=== PATIENT | female | born 1990 | race Caucasian/White ===

== ENCOUNTER 2023-11-01 19:22 | Inpatient (IN) | payer MEDICAID, SELFPAY ==
[2023-11-01] VITALS (19 sets, daily range): BP systolic 101–131; BP diastolic 57–94; PULSE 50–78; RESP 16–25; TEMP 36–37.3; O2SAT 93–100; BMI 31.5; BMI 34.4
--- NOTE | 2023-11-01 19:31 | CT_ITS ---
INDICATION: Altered mental status question history of trauma EXAMINATION: CT BRAIN - CT Head or Brain W/O Contrast Injection TECHNIQUE: Multiple axial images were obtained of the head without intravenous contrast. A radiation dose optimization technique was used for this scan. IV Contrast dosage and agent: None. COMPARISON: None. FINDINGS: BRAIN PARENCHYMA: No intra- or extra-axial hemorrhage. No evidence of acute infarct. No intracranial mass or mass effect. There is preservation of the warren/white matter interface. Posterior fossa structures are unremarkable. CSF SPACES: Appropriate for age. No hydrocephalus. Basal cisterns are patent. CALVARIUM, SKULL BASE, PARANASAL SINUSES AND MASTOID AIR CELLS: Clear. No discrete lytic or blastic abnormalities. ORBITS: Both globes, extraocular muscles, optic nerves and retrobulbar fat appear unremarkable. CT/Brain/Head without Contrast IMPRESSION: No acute intracranial findings. Electronically Signed: Rony Nunes MD at 22:12 EDT ,
--- NOTE | 2023-11-01 19:32 | EKG12_ITS ---
Test Reason : SOB Blood Pressure : / mmHG Vent. Rate : 055 BPM Atrial Rate : 055 BPM P-R Int : 132 ms QRS Dur : 084 ms QT Int : 426 ms P-R-T Axes : 035 017 049 degrees QTc Int : 407 ms Sinus bradycardia Otherwise normal ECG Confirmed by ESTEFANY COLES, ARPITA ([id number]), managing editor BISMARK MANNING ([id number]) on 11/03/2023 1:39:37 PM Referred By: FELICITA Confirmed By:ARPITA ALLISON MD
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
[2023-11-01 20:01] LABS: Absolute Lymphocyte Count 3.26 X10^3/uL (0.83-4.51); Absolute Neutrophil Count 5.8 X10^3/uL (2.0-7.7); Basophil# 0.03 X10^3/uL; Basophil% 0.3 % (0-1); Eosinophil# 0.09 X10^3/uL; Eosinophils% 0.9 % (0-5); Hematocrit 47.7 % (37-47); Hemoglobin 16.1 g/dL (12.0-15.0); Lymphocyte # 3.26 X10^3/ul (0.83-4.51); Lymphocyte % 33.7 % (19-41); Mean Corp Hgb Conc 33.8 g/dL (32-36); Mean Corpuscular Hgb 32.3 pg (27.0-32.0); Mean Corpuscular Volume 95.8 fL (81-99); Monocyte# 0.47 X10^3/uL; Monocyte% 4.9 % (0-10); NRBC Flagged by Analyzer 0 % (0-5); Neutrophil # 5.78 X10^3/uL (2.7-7.7); Neutrophil % 59.8 % (47-70); Platelet Count 370 K/mm3 (150-450); RBC Distribution Width SD 41.9 fl (35.1-43.9); Red Blood Count 4.98 M/mm3 (4.2-5.4); White Blood Count 9.7 K/mm3 (4.4-11.0)
[2023-11-01 20:01] LABS: Bedside Glucose 117 mg/dL (74-106)
[2023-11-01 20:10] LABS: Partial Thromboplast Time 27.3 Seconds (24.1-36.2); Prothrombin Time (Protime)PT. 12.7 SECONDS (11.7-14.9)
[2023-11-01 20:12] LABS: Bacteria 0 SEEN /hpf (None Seen); Mucous, Urine 0 SEEN /hpf (<or=2+); White Blood Cells 0 SEEN /hpf (0-5)
[2023-11-01] MEDS: 0.9% Normal Saline (1000mL) 1,000 ML 150 ML IV ×2 (20:18→23:19)
[2023-11-01 20:22] LABS: ALB/GLOB Ratio 0.9 RATIO (0.9-2.4); AST(SGOT) 23 U/L (15-37); Alanine Aminotransfer ALT/SGPT 23 U/L (13-56); Alkaline Phosphatase 87 U/L (45-117); Anion Gap 11 (5-15); BUN 12 mg/dL (7-18); BUN/Creat Ratio 13.6 RATIO (10-20); Calcium,Total 9.2 mg/dL (8.5-10.1); Chloride 108 mmol/L (98-107); Creatinine, Serum 0.88 mg/dL (0.55-1.02); EST Glomerular Filtration Rate 80 mL/min (>60); Est Glom Filt Rate - Afr Amer 96 mL/min (>60); Estimated Creatinine Clearance 103.85 ml/min; Globulin 4.4 g/dL (2.2-4.2); Glucose 96 mg/dL (74-106); Lipase 54 U/L (13-75); Potassium 3.7 mmol/L (3.5-5.1); Protein, Total 8.4 g/dL (6.4-8.2); Sodium Level 142 mmol/L (136-145); Troponin-I HS 3 pg/mL (3.0-54.0)
[2023-11-01 20:22] LABS: Allen Test Positive; Base Excess -4 mmol/L (-2 to +2); Bicarbonate 21.5 mmol/L (22-26); Blood Gas Specimen Type ART; Mode Not entered; O2 Delivery Device Cannula; PO2 124 mmHG (75-100); SITE R Radial; SO2 99 % (95-99); Total Carbon Dioxide 23 mmol/L; pCO2 38.8 mmHg (35-45); pH 7.35 (7.35-7.45)
[2023-11-01 20:23] LABS: Lactic Acid 2.2 mmol/L (0.4-1.9)
--- NOTE | 2023-11-01 20:23 | ED.RN ---
dr alex notified of lactic of 2.2
[2023-11-01] MEDS: Ketamine HCl 500 MG/5 ML Vial 30 MG IV (20:51)
[2023-11-01 20:52] LABS: Amphetamine Urine NEGATIVE (<1000 ng/mL); Barbiturate Urine NEGATIVE (< 200 ng/mL); Benzodiazepine Urine NEGATIVE (< 200 ng/mL); Cocaine Urine NEGATIVE (< 300 ng/mL); Ecstacy Urine NEGATIVE (< 500 ng/mL); Methadone Urine NEGATIVE (< 300 ng/mL); Opiates Urine NEGATIVE (< 300 ng/mL); PCP Urine NEGATIVE (< 25 ng/mL); THC Urine POSITIVE (< 50 ng/mL); Vista UDS pH Range 6
--- NOTE | 2023-11-01 21:07 | RAD_ITS ---
INDICATION: Rhonchi bilaterally with hypoxia question aspirati EXAMINATION/TECHNIQUE: X-RAY - XR Chest 1 View COMPARISON: None. FINDINGS: LINES/DEVICES: None. LUNGS: No consolidation, edema or effusion. No pneumothorax. MEDIASTINUM AND CARDIOVASCULAR STRUCTURES: Cardiac silhouette not enlarged. BONES AND SOFT TISSUES: Unremarkable. RAD/Chest 1 View (Portable) IMPRESSION: No radiographic evidence of acute cardiopulmonary disease. Electronically Signed: Oleg Newton MD at 22:22 EDT ,
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
--- NOTE | 2023-11-01 21:22 | NURSING ---
Pt more alert at this time. Yelling, flailing, spitting. Pulled up in bed.
--- NOTE | 2023-11-01 21:31 | NURSING ---
Report called to ICU and given to Vashti LOYA.
[2023-11-01] MEDS: 0.9% Normal Saline (1000mL) 1,000 ML 999 ML IV (22:19)
[2023-11-01] MEDS: proCHLORPERazine 10 MG/2 ML Vial 5 MG IV (22:19)
[2023-11-01] MEDS: Pantoprazole Sodium 40 MG in 0.9% Normal Saline (100mL MB+) 100 ML 330 MG IV (22:21)
[2023-11-01 22:34] LABS: Procalcitonin < 0.04 ng/mL (0.00-0.09)
[2023-11-01 22:47] LABS: Color, Urine Yellow (Yellow); Glucose, Dipstick Normal (Normal); Ketone-Dipstick Negative (Negative); Leukocyte Esterase-Dipstick Negative /ul (Negative); Nitrite-Dipstick Negative (Negative); Occult Blood-Urine 150 /ul (Negative); Protein-Dipstick Negative (Negative); Urine Bilirubin Dipstick Negative (Negative); Urine Clarity Clear (Clear); Urine Urobilinogen Normal (Normal); Urine pH 6.5 (5.0 - 8.0)
[2023-11-01 22:53] LABS: Red Blood Cells-Urine 10-25 SEEN /hpf (0-5); Squamous Epithelial Cells - UA 5-10 SEEN /hpf (5-10)
[2023-11-01 23:08] LABS: Magnesium 2.1 mg/dL (1.6-2.6); Phosphorus 3.1 mg/dL (2.5-4.9)
[2023-11-01 23:50] LABS: Reflex Lactate? Y
[2023-11-02] VITALS (14 sets, daily range): BP systolic 101–114; BP diastolic 57–69; PULSE 47–66; RESP 13–22; TEMP 36.2–37.3; O2SAT 92–100; BMI 34.4
[2023-11-02] MEDS: 0.9% Normal Saline (1000mL) 1,000 ML 150 ML IV (05:45)
--- NOTE | 2023-11-02 05:55 | RAD_ITS ---
INDICATION: Dyspnea, cough EXAMINATION/TECHNIQUE: X-RAY - XR Chest 1 View COMPARISON: 11/01/2023 chest radiograph. Findings: Single frontal view of the chest. LUNG PARENCHYMA: Streaky right lateral lung base atelectasis versus other airspace disease. PLEURA: No pleural effusion. No pneumothorax. HEART/GREAT VESSELS: Cardiomediastinal silhouette is unremarkable. BONES: Osseous structures are unremarkable for age. RAD/Chest 1 View (Portable) IMPRESSION: Streaky right lateral lung base atelectasis versus other airspace disease, to include pneumonia.. Electronically Signed: Fabio Wild MD at 7:03 EDT ,
[2023-11-02 06:27] LABS: Absolute Lymphocyte Count 3.06 X10^3/uL (0.83-4.51); Absolute Neutrophil Count 5.3 X10^3/uL (2.0-7.7); Basophil# 0.02 X10^3/uL; Basophil% 0.2 % (0-1); Eosinophil# 0.06 X10^3/uL; Eosinophils% 0.7 % (0-5); Hematocrit 41.9 % (37-47); Hemoglobin 13.8 g/dL (12.0-15.0); Lymphocyte # 3.06 X10^3/ul (0.83-4.51); Lymphocyte % 33.9 % (19-41); Mean Corp Hgb Conc 32.9 g/dL (32-36); Mean Corpuscular Hgb 31.9 pg (27.0-32.0); Mean Corpuscular Volume 96.8 fL (81-99); Mean Platelet Vol. 10.3 fl (6.2-12.0); Monocyte# 0.58 X10^3/uL; Monocyte% 6.4 % (0-10); NRBC Flagged by Analyzer 0 % (0-5); Neutrophil # 5.28 X10^3/uL (2.7-7.7); Neutrophil % 58.6 % (47-70); Platelet Count 294 K/mm3 (150-450); RBC Distribution Width CV 12.2 % (11.6-14.6); RBC Distribution Width SD 43.7 fl (35.1-43.9); Red Blood Count 4.33 M/mm3 (4.2-5.4)
[2023-11-02 06:43] LABS: AST(SGOT) 13 U/L (15-37); Alanine Aminotransfer ALT/SGPT 19 U/L (13-56); Albumin, Serum 3.2 g/dL (3.2-5.0); Alkaline Phosphatase 70 U/L (45-117); Anion Gap 5 (5-15); BUN 9 mg/dL (7-18); BUN/Creat Ratio 14.8 RATIO (10-20); Calcium,Total 8.1 mg/dL (8.5-10.1); Chloride 119 mmol/L (98-107); Creatinine, Serum 0.61 mg/dL (0.55-1.02); EST Glomerular Filtration Rate 122 mL/min (>60); Est Glom Filt Rate - Afr Amer 148 mL/min (>60); Estimated Creatinine Clearance 135.14 ml/min; Globulin 3.3 g/dL (2.2-4.2); Glucose 95 mg/dL (74-106); Potassium 3.8 mmol/L (3.5-5.1); Protein, Total 6.5 g/dL (6.4-8.2); Sodium Level 146 mmol/L (136-145)
[2023-11-02] MEDS: Budesonide Respules 0.5 MG/2 ML AMPUL.NEB. INHALATION (08:33)
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
[2023-11-02] MEDS: Acetaminophen 325 MG Tablet 650 MG PO (08:56)
--- NOTE | 2023-11-02 10:25 | PCM.DC ---
Discharge Instructions Diet Discharge Diet: No restrictions Activity Discharge Activity: No Restrictions Follow Up Care Test Results: Test results from this visit will be discussed in further detail at your follow-up appointment, if applicable. Discharge Plan Admission Admit Date/Time: 11/01/23 21:21 Primary Reason for Your Visit: altered mental status Attending Provider: Armin Lawrence Primary Care Provider: Care Physician,No Primary Consulting Providers: Jaylyn Corrales; Edwin Guzmán; Toni Kwok; Mikal Hernandez; Saturnino Wright; Vikram Rubio; Lesley Kohli; Dakota Lopez; Tawana Padilla; Ky Farrell; Ildefonso Downs; Nelson Porter; Isaiah Avina; Osman Burton; Jose Muñiz Discharge Orders/Prescriptions Prescriptions: Continued escitalopram oxalate 5 mg tablet 5 mg PO DAILY Referrals / Follow Up: Care Physician,No Primary [Primary Care Provider] - NOT,DEFINED [Non-Staff] - Disposition Disposition (needs filled in before D/C Order can be placed): Home, Self Care
--- NOTE | 2023-11-02 10:26 | DS.PCM_ITS ---
Providers Date of Admission: 11/01/23 Date of Discharge: 11/02/23 Primary Care Physician: No Primary Care Phys Consultations 11/01/23 22:01 Consult: Test Desk Operator / Pulmonary Medicine Routine Consulting Provider: Intensivists/Pulmonary Med Reason for Consult: Encephalopathy, Likely Polysubstance, Suspect aspiration/submerged status EMERGENT Consult: No MD Notified: Yes Date Notified: 11/01/23 Time Notified: 21:40 Method of Notification: Text Method of Consult:: Telemedicine Reason For Visit: ALTERED MENTAL STATUS Diagnosis Discharge Diagnosis (1) Acute alcoholic intoxication in alcoholism (blood level 0.08-0.29): Status: Acute Code(s): F10.229 - Alcohol dependence with intoxication, unspecified Medications at Discharge Home Medications escitalopram oxalate 5 mg tablet 5 mg PO DAILY depression 11/01/23 Hospital Course Operations None Procedures - (Chest x-ray x 2, CT brain without contrast) Summary of Care Provided Minutes Spent on Discharge: 35 Hospital Course: Patient is a 33-year-old female who presented to [facility] ED on 11/01/2023 with altered mental status with agitation. Short hospital course as noted below. Discharged home in stable condition on 11/01. 1. Acute toxic encephalopathy with agitation, resolved; acute alcohol intoxication with cannabis use ? Presented with altered mentation with agitation. Suspected secondary to acute alcohol intoxication with cannabis use. Alcohol level 240 on admit. UDS positive for cannabinoids, otherwise negative. Hemodynamically stable on room air and afebrile during hospitalization. Lab workup largely benign. CT brain without contrast normal. Chest x-rays on 10/31 and 11/01 with no concerning findings. Patient returned to baseline mental status by morning of 11/01, stable for discharge home. Encouraged alcohol and cannabis cessation on discharge. Chronic medical conditions: ? Obesity: BMI 34 on admit. Encouraged lifestyle modifications. ? Anxiety/depression: Stable. Continue home escitalopram. ? History of childhood seizures Total clinical time spent by myself addressing the patient's medical issues, reviewing all the data, and collaborating with patient's care team: 35 minutes. Physical Exam Const alert, oriented x3, no apparent distress, healthy appearing and well nourished Constitutional Narrative: Pleasant younger female, obese, sitting up comfortably in bedside chair, conversing normally, in no acute distress. General Appearance: cooperative and comfortable HEENT normocephalic, head/scalp atraumatic, hearing grossly normal bilaterally, nasal mucous membranes and turbinates normal and moist oral mucous membranes Eyes PERRL, EOMs intact bilaterally and conjunctivae normal Neck full ROM Chest inspection of chest normal Resp normal respiratory effort, normal air movement, no use of accessory muscles and clear to auscultation bilaterally Cardio regular rate, regular rhythm, no murmurs and peripheral pulses 2+ throughout GI normal to inspection, nondistended, normoactive bowel sounds, soft to palpation, non-tender and non-distended Back/Spine normal ROM Extremity normal to inspection, full ROM and no pedal edema Skin no rashes or lesions noted Neuro moves all extremities and no focal motor deficits Speech: speech normal Psych mental status grossly normal Weight / BMI Weight Weight: 85 kg Body Mass Index (BMI) 34.4 ABG / Lab / Microbiology Data 11/02/23 05:45 11/02/23 05:45 Laboratory: Laboratory Results - last 24 hr 11/01/23 19:31: PT 12.7, INR 1.0, APTT 27.3 11/01/23 19:40: WBC 9.7, RBC 4.98, Hgb 16.1 H, Hct 47.7 H, MCV 95.8, MCH 32.3 H, MCHC 33.8, RDW Std Deviation 41.9, RDW Coeff of Lee 12.0, Plt Count 370, MPV 10.0, Immature Gran % (Auto) 0.400, Neut % (Auto) 59.8, Lymph % (Auto) 33.7, [place] % (Auto) 4.9, Eos % (Auto) 0.9, Baso % (Auto) 0.3, Absolute Neuts (auto) 5.8, Absolute Lymphs (auto) 3.26, Nucleated RBC % 0, Sodium 142, Potassium 3.7, Chloride 108 H, Carbon Dioxide 23.0, Anion Gap 11, BUN 12, Creatinine 0.88, Estim Creat Clear Calc 103.85, Est GFR (MDRD) Af Amer 96, Est GFR (MDRD) Non-Af 80, BUN/Creatinine Ratio 13.6, Glucose 96, Lactic Acid 2.2 H*, Calcium 9.2, Phosphorus 3.1, Magnesium 2.1, Total Bilirubin 0.50, AST 23, ALT 23, Alkaline Phosphatase 87, Troponin I High Sens 3, Total Protein 8.4 H, Albumin 4.0, G lobulin 4.4 H, Albumin/Globulin Ratio 0.9, Lipase 54, Procalcitonin < 0.04, Ethyl Alcohol 240.0 11/01/23 19:42: POC Glucose 117 H 11/01/23 20:00: Urine Color Yellow, Urine Clarity Clear, Urine pH 6.5, Ur Specific [place] 1.010, Urine Protein Negative, Urine Glucose (UA) Normal, Urine Ketones Negative, Urine Occult Blood 150 H, Urine Nitrite Negative, Urine Bilirubin Negative, Urine Urobilinogen Normal, Ur Leukocyte Esterase Negative, Urine RBC 10-25 SEEN, Urine WBC 0 SEEN, Ur Squamous Epith Cells 5-10 SEEN, Urine Bacteria 0 SEEN, Urine Mucus 0 SEEN, Urine Opiates Screen NEGATIVE, Urine Methadone Screen NEGATIVE, Ur Barbiturates Screen NEGATIVE, Ur Phencyclidine Scrn NEGATIVE, Ur Amphetamines Screen NEGATIVE, MDMA (Ecstasy) Screen NEGATIVE, U Benzodiazepines Scrn NEGATIVE, Urine Cocaine Screen NEGATIVE, U Cannabinoids Screen POSITIVE H, Ur Drug Screen Comment 11/02/23 05:45: WBC 9.0, RBC 4.33, Hgb 13.8, Hct 41.9, MCV 96.8, MCH 31.9, MCHC 32.9, RDW Std Deviation 43.7, RDW Coeff of Lee 12.2, Plt Count 294, MPV 10.3, Immature Gran % (Auto) 0.200, Neut % (Auto) 58.6, Lymph % (Auto) 33.9, [place] % (Auto) 6.4, Eos % (Auto) 0.7, Baso % (Auto) 0.2, Absolute Neuts (auto) 5.3, Absolute Lymphs (auto) 3.06, Nucleated RBC % 0, Sodium 146 H, Potassium 3.8, C hloride 119 H, Carbon Dioxide 22.0, Anion Gap 5, BUN 9, Creatinine 0.61, Estim Creat Clear Calc 135.14, Est GFR (MDRD) Af Amer 148, Est GFR (MDRD) Non-Af 122, BUN/Creatinine Ratio 14.8, Glucose 95, Calcium 8.1 L, Total Bilirubin 0.40, AST 13 L, ALT 19, Alkaline Phosphatase 70, Total Protein 6.5, Albumin 3.2, Globulin 3.3, Albumin/Globulin Ratio 1.0 ABG: ABG 11/01/23 20:19 Specimen Type ART Sample Site R Radial pH 7.35 Bicarbonate Actual 21.5 L Total CO2 23 Base Excess -4 L O2 Saturation 99 O2 % 5.0 ABG pCO2 38.8 ABG pO2 124 H Twan Test Positive O2 Delivery Device Cannula Vent Mode Not entered Radiography Diagnostic Testing: Radiology Impression Brain CT 11/01/23 19:31 IMPRESSION: No acute intracranial findings. Electronically Signed: Rony Nunes MD at 22:12 EDT , Chest X-Ray 11/01/23 21:07 IMPRESSION: No radiographic evidence of acute cardiopulmonary disease. Electronically Signed: Oleg Newton MD at 22:22 EDT , Chest X-Ray 11/02/23 05:55 IMPRESSION: Streaky right lateral lung base atelectasis versus other airspace disease, to include pneumonia.. Electronically Signed: Fabio Wild MD at 7:03 EDT , D/C Instructions Discharge Diet: No restrictions Meaningful Use Info Meaningful Use Meaningful Use Diagnoses (Choose all that apply): None applicable Ischemic Stroke Statin Dosing Therapy Reference: STATIN DOSE THERAPY REFERENCE: * Patients > 75 years receive moderate or high dose statin therapy. * Patients 75 years or YOUNGER should receive HIGH intensity statin dose unless contraindicated. You will be required to document reason for non-treatment if statin daily dose does not meet guidelines. HIGH DOSE STATIN THERAPY DAILY Atorvastatin > than or = to 40 mg Rosuvastatin > than or = to 20 mg Amlodipine + Atorvastatin > than or = to 2.5/40 mg Ezetimibe + Simvastatin 10/80 mg Simvastatin 80mg Discharge Plan Admission Admit Date/Time: 11/01/23 21:21 Primary Reason for Your Visit: altered mental status Attending Provider: Armin Lawrence Primary Care Provider: Care Physician,No Primary Consulting Providers: Jaylyn Corrales; Edwin Guzmán; Toni Kwok; Mikal Hernandez; Saturnino Wrihgt; Vikram Rubio; Lesley Kohli; Dakota Lopez; Tawana Padilla; Ky Farrell; Ildefonso Downs; Nelson Porter; Isaiah Avina; Osman Burton; Jose Muñiz Discharge Orders/Prescriptions Prescriptions: Continued escitalopram oxalate 5 mg tablet 5 mg PO DAILY Referrals / Follow Up: Care Physician,No Primary [Primary Care Provider] - NOT,DEFINED [Non-Staff] - Disposition Disposition (needs filled in before D/C Order can be placed): Home, Self Care Charges/Coding Visit Charges Inpatient E&M: 08846 Disch Hosp >30min
== END 2023-11-02 10:41 | disposition home or self-care (01) | DRG 775 ==
LOC: ED 21:15 → ICU 11-02 07:09
PROVIDERS: Admitting Provider Family Medicine; Emergency Provider Emergency Medicine; Visit Provider Hospitalist
DX: F10.229 Alcohol dependence with intoxication, unspecified (principal); E66.9 Obesity, unspecified; J45.909 Unspecified asthma, uncomplicated; F12.10 Cannabis abuse, uncomplicated; F41.9 Anxiety disorder, unspecified; F17.200 Nicotine dependence, unspecified, uncomplicated; Z68.34 Body mass index [BMI] 34.0-34.9, adult; Z79.899 Other long term (current) drug therapy; Y90.8 Blood alcohol level of 240 mg/100 ml or more
CPT/HCPCS: 36600; 51702; 70450; 71045; 80053; 80307; 81001; 82077; 82803; 82962; 83605; 83690; 83735; 84100; 84145; 84484; 85025; 85610; 85730; 93005; 94640; 94668; 99285; A4216